=== PATIENT | female | born 1990 | race Caucasian/White ===

== ENCOUNTER 2023-08-16 02:07 | Emergency (ER) | payer MEDICAID, SELFPAY ==
[2023-08-16 02:16] VITALS: BP 157/109; PULSE 109; RESP 16; TEMP 37.2; O2SAT 100; BMI 24.3
--- NOTE | 2023-08-16 02:39 | ED_ITS ---
HPI - Female Genitourinary General: Chief complaint: Urogenital-Female Stated complaint: tested for stds Time Seen by Provider: 08/16/23 02:26 History of Present Illness: Patient presents to the ER with complaints of having syphilis. Patient says she has no symptoms such as vaginal discharge or sores. But she knows she has it. Patient says her boyfriend has it also and they both would like treated. They do not have any other current complaints or symptoms at this time. Review of Systems General: Reports: 10 or more systems reviewed and unremarkable except in HPI and below Physical Exam Const: COMMON NORMALS: no acute distress, average body habitus, patient oriented x3, no limitations, healthy appearing, alert and well nourished Neuro: COMMON NORMALS: patient oriented x3 SENSORIUM/ORIENTATION: Yes alert Course Vital Signs: Vital signs: Vital Signs Temperature 98.9 F 08/16/23 02:16 Pulse Rate 109 H 08/16/23 02:16 Respiratory Rate 16 08/16/23 02:16 Blood Pressure 157/109 08/16/23 02:16 Pulse Oximetry 100 08/16/23 02:16 Oxygen Delivery Me thod Room Air 08/16/23 02:16 MDM - Female Medical Decision Making Patient is concerned she has syphilis. Patient would like treated for syphilis. Patient will be referred back to her family practice doctor or the health department. Patient will be discharged from the ER No radiology studies performed this visit Discharge Plan Discharge Patient Disposition: Home Clinical Impression: Concern about STD in female without diagnosis Condition: Stable Discharge Orders: Discharge ED (Routine); Ordered 08/16/23 Ordered By: Holland Hancock Patient Instructions: Sexually Transmitted Diseases (ED) Activity Restrictions/Additional Instructions: You have concerns about having syphilis and want treated. We normally do not treat that through the ER. We usually refer you back to your family practice doctor. The health department can also offer definitive testing and treatment. Please refrain from having sexual intercourse until properly tested and treated. 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
== END 2023-08-16 02:45 | disposition home or self-care (01) ==
PROVIDERS: Emergency Provider Emergency Medicine
DX: Z20.2 Contact with and (suspected) exposure to infections with a predominantly sexual mode of transmission (principal)
CPT/HCPCS: 99281

== ENCOUNTER 2024-05-24 00:05 | Emergency (ER) | payer SELFPAY ==
[2024-05-24 00:12] VITALS: BP 122/88; PULSE 91; RESP 14; TEMP 36.3; O2SAT 98; BMI 30.2
--- NOTE | 2024-05-24 00:56 | W.ED.PREGNAN ---
HPI - General: Chief complaint: Vaginal Bleeding Stated complaint: Bleeding Preg\Weeks Unknown Time Seen by Provider: 05/24/24 00:52 History of Present Illness: Patient presents to the ER with complaints of vaginal spotting. For last 3 days. Patient denies any pain burning frequency urgency or abdominal pain. Patient says she is currently but is on for sure of the dates. Patient is G3, P2, has not seen any body for this . Unknown last menstrual period Related Data Allergies Allergy/AdvReac Type Severity Reaction Status Date / Time No Known Allergies Allergy Verified 05/24/24 00:17 Review of Systems General: Reports: 10 or more systems reviewed and unremarkable except in HPI and below Physical Exam Const: COMMON NORMALS: no acute distress, average body habitus, patient oriented x3, no limitations, healthy appearing, alert and well nourished HENMT: COMMON NORMALS: normocephalic, atraumatic, hearing grossly normal bilaterally, external ears normal, Normal external nose present, moist oral mucous membranes and oropharynx normal HEAD & SCALP: normocephalic and atraumatic NOSE: Normal external nose present EXTERNAL EAR: Yes external ears normal Neck/C-Spine: COMMON NORMALS: no JVD Chest: COMMONS NORMALS: normal inspection of the chest and normal palpation of entire chest wall Resp: COMMON NORMALS: normal respiratory effort, No retractions, No use of accessory muscles and clear to auscultation bilaterally AUSCULTATION: clear to auscultation bilaterally Cardio: COMMON NORMALS: no JVD, regular rate, regular rhythm, S1 normal heart sound present, S2 normal heart sound present, No gallops present (Cardio), No clicks present (Cardio), No murmurs present (Cardio) and No rub (Cardio) RATE: regular rate RHYTHM: regular rhythm HEART SOUNDS: S1 normal heart sound present and S2 normal heart sound present GI: COMMON NORMALS: Normal to inspection, nondistended, normoactive bowel sounds present, Soft to palpation, non-tender, No hepatosplenomegaly present and no masses PALPATION: Yes Soft to palpation and Yes No hepatosplenomegaly present Neuro: COMMON NORMALS: patient oriented x3 SENSORIUM/ORIENTATION: Yes alert Course Vital Signs: Vital signs: Vital Signs Temperature 97.3 F L 05/24/24 00:12 Pulse Rate 91 05/24/24 00:12 Respiratory Rate 14 05/24/24 00:12 Blood Pressure 122/88 05/24/24 00:12 Pulse Oximetry 98 05/24/24 00:12 MDM - OB/Uterine Contractions Medical Decision Making Patient's blood type to be positive, quantitative hCG is approximately 300. Otherwise lab work was unremarkable. These results were discussed with the patient. Patient was instructed to follow-up somewhere within 48 hours to have her quantitative beta-hCG rechecked. Medical Records I reviewed the patient's medical records. Lab Data I reviewed the patient's lab results. 05/24/24 01:02 05/24/24 01:02 Laboratory Results WBC 7.04 10^3/uL (3.29-11.43) 05/24/24 01:02 RBC 4.41 10^6/uL (3.85-5.65) 05/24/24 01:02 Hgb 11.40 g/dL (11.27-16.99) 05/24/24 01:02 Hct 36.0 % (36-47) 05/24/24 01:02 MCV 81.6 fl (85-98) L 05/24/24 01:02 MCH 25.9 pg (27-33) L 05/24/24 01:02 MCHC 31.7 g/dL (30-55) 05/24/24 01:02 RDW 14.3 % (12.1-15.1) 05/24/24 01:02 Plt Count 388 10^3/cmm (157-399) 05/24/24 01:02 MPV 10.7 fL (7.4-10.4) H 05/24/24 01:02 Neut % (Auto) 47.8 % 05/24/24 01:02 Lymph % (Auto) 39.9 % 05/24/24 01:02 Green % (Auto) 8.2 % 05/24/24 01:02 Eos % (Auto) 3.3 % 05/24/24 01:02 Baso % (Auto) 0.7 % 05/24/24 01:02 Neut # (Auto) 3.36 10^3/uL (1.8-7.7) 05/24/24 01:02 Lymph # (Auto) 2.8 10^3/uL (0.8-4.8) 05/24/24 01:02 Green # (Auto) 0.6 10^3/uL (0.2-0.9) 05/24/24 01:02 Eos # (Auto) 0.2 10^3/uL (0.0-0.8) 05/24/24 01:02 Baso # (Auto) 0.1 10^3/uL (0.0-0.1) 05/24/24 01:02 Nucleated RBC % (auto) 0 % 05/24/24 01:02 Nucleated RBCs # 0.0 /100WBC 05/24/24 01:02 Sodium 138 mmol/L (136-145) 05/24/24 01:02 Potassium 3.8 mmol/L (3.5-5.1) 05/24/24 01:02 Chloride 106 mmol/L (98-107) 05/24/24 01:02 Carbon Dioxide 21 mmol/L (22-29) L 05/24/24 01:02 Anion Gap 14.8 (5-19) 05/24/24 01:02 BUN 9 mg/dL (6-20) 05/24/24 01:02 Creatinine 0.7 mg/dL (0.5-0.9) 05/24/24 01:02 GFR Calculation 95.2 mL/min (90-130) 05/24/24 01:02 Glucose 134 mg/dL (65-115) H 05/24/24 01:02 Calculated Osmolality 287 mOsm/kg (285-295) 05/24/24 01:02 Calcium 8.5 mg/dL (8.5-10.5) 05/24/24 01:02 Total Bilirubin 0.2 mg/dL (0.15-1.2) 05/24/24 01:02 AST 11 U/L (0-32) 05/24/24 01:02 ALT 9 U/L (0-33) 05/24/24 01:02 Alkaline Phosphatase 79 U/L (35-105) 05/24/24 01:02 Total Protein 6.7 g/dL (6.6-8.7) 05/24/24 01:02 Albumin 3.7 g/dL (3.5-5.2) 05/24/24 01:02 Globulin 3.0 g/dL (1.3-4.6) 05/24/24 01:02 Ser , Semi-Qnt 319.00 mIU/mL 05/24/24 01:02 Urine Color Yellow (Yellow) 05/24/24 01:15 Urine Appearance Clear (CLEAR) 05/24/24 01:15 Urine pH 5.5 (5-7) 05/24/24 01:15 Ur Specific [place] 1.023 (1.005-1.030) 05/24/24 01:15 Urine Protein Negative (Negative) 05/24/24 01:15 Urine Glucose (UA) Negative (Normal) 05/24/24 01:15 Urine Ketones Negative (Negative) 05/24/24 01:15 Urine Blood Trace (Negative) A 05/24/24 01:15 Urine Nitrate Negative (Negative) 05/24/24 01:15 Urine Bilirubin Negative (Negative) 05/24/24 01:15 Urine Urobilinogen 1.0 mg/dL (Negative) 05/24/24 01:15 Ur Leukocyte Esterase Negative (Negative) 05/24/24 01:15 Urine RBC 0-4 /hpf (0-2) H 05/24/24 01:15 Urine WBC None /hpf (0-5) 05/24/24 01:15 Ur Squamous Epith Cells 5-10 /hpf (0-5) H 05/24/24 01:15 Amorphous Sediment Not Reportable 05/24/24 01:15 Urine Bacteria None /hpf (NONE) 05/24/24 01:15 Urine Mucus Trace /hpf 05/24/24 01:15 Blood Type B Positive 05/24/24 01:02 Rho(D) Type Rh positive 05/24/24 01:02 Antibody Screen Negative 05/24/24 01:02 All radiology interpretation(s) finalized by discharge Discharge Plan Discharge Patient Disposition: Home Clinical Impression: Vaginal bleeding during Condition: Stable Discharge Orders: Discharge ED (Routine); Ordered 05/24/24 Ordered By: Holland Hancock Patient Instructions: Activity Restrictions/Additional Instructions: Your evaluation ER shows you are . Your quantitative beta-hCG is approximately 319, and your blood type is be positive, please follow-up in 48 to 72 hours to have your blood work rechecked. Please have them draw a quantitative beta-hCG, if this numbers going up it is a good indicator the is still good. If this numbers going down that is a sign this may not be viable. Thank you for choosing [facility] for your healthcare needs today. Please realize that you were seen in the emergency department and that we are providing you with an emergency medical screening exam and this may not be a complete and all exclusive of all testing and/or medical workup we may need to determine your element or severity of your illness. It is very important that you follow-up as instructed with your primary care provider or specialist for the additional evaluation and to discuss your medical treatment plan. You may return to the emergency department should you have concerns or if your condition changes or worsens in any way. 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
[2024-05-24 01:13] LABS: Basophils # 0.1 10^3/uL (0.0-0.1); Basophils % 0.7 %; Eosinophils # 0.2 10^3/uL (0.0-0.8); Eosinophils % 3.3 %; Lymphocytes # 2.8 10^3/uL (0.8-4.8); Lymphocytes % 39.9 %; Mean Corpuscular HGB Conc 31.7 g/dL (30-55); Mean Corpuscular Hemoglobin 25.9 pg (27-33); Mean Corpuscular Volume 81.6 fl (85-98); Mean Platelet Volume 10.7 fL (7.4-10.4); Monocytes # 0.6 10^3/uL (0.2-0.9); Monocytes % 8.2 %; Neutrophils # 3.36 10^3/uL (1.8-7.7); Neutrophils % 47.8 %; Nucleated Red Blood Cells % 0 %; Platelet Count 388 10^3/cmm (157-399); Red Blood Count 4.41 10^6/uL (3.85-5.65); Red Cell Distribution Width 14.3 % (12.1-15.1); White Blood Count 7.04 10^3/uL (3.29-11.43)
[2024-05-24 01:29] LABS: Bilirubin Urine Negative (Negative); Blood Urine Trace (Negative); Glucose Urine UA Negative (Normal); Ketones Urine Negative (Negative); Leukocyte Esterase Urine Negative (Negative); Nitrate Urine Negative (Negative); Protein Urine Negative (Negative); Specific Gravity, Urine 1.023 (1.005-1.030); Urine Appearance Clear (CLEAR); Urine Color Yellow (Yellow); pH Urine 5.5 (5-7)
[2024-05-24 01:37] LABS: Add Urine Culture? No; Add Urine Microscopic? YES; Mucus Urine TRACE /hpf; RBC Urine 0-4 /hpf (0-2); UA Manual Slide Review YES
[2024-05-24 01:42] LABS: Alanine Aminotransferase 9 U/L (0-33); Albumin Level 3.7 g/dL (3.5-5.2); Alkaline Phosphatase 79 U/L (35-105); Anion Gap 14.8 (5-19); Aspartate Amino Transferase 11 U/L (0-32); Blood Urea Nitrogen 9 mg/dL (6-20); Calcium 8.5 mg/dL (8.5-10.5); Carbon Dioxide 21 mmol/L (22-29); Chloride 106 mmol/L (98-107); Creatinine Clr Calc Pharmacy 98.1445; Glomerular Filtration Rate 95.2 mL/min (90-130); Glucose 134 mg/dL (65-115); Osmolality Calculated 287 mOsm/kg (285-295); Potassium 3.8 mmol/L (3.5-5.1); Sodium 138 mmol/L (136-145); Total Bilirubin 0.2 mg/dL (0.15-1.2); Total Protein 6.7 g/dL (6.6-8.7)
[2024-05-24 02:40] VITALS: BP 153/101; PULSE 101; RESP 16; O2SAT 99
== END 2024-05-24 02:20 | disposition home or self-care (01) ==
PROVIDERS: Emergency Provider Emergency Medicine
DX: O26.899 Other specified pregnancy related conditions, unspecified trimester (principal)
CPT/HCPCS: 36415; 80053; 81001; 84702; 85025; 86850; 86900; 99283